=== PATIENT | female | born 1995 ===

== ENCOUNTER 2016-11-30 14:40 | Inpatient (IN) | payer MEDICAID, OTHER ==
[2016-11-30 15:29] VITALS: RESP 16
[2016-11-30] MEDS ORDERED: ACETAMINOPHEN TAB 325 MG TAB PO PRN (16:13)
[2016-11-30] MEDS ORDERED: MAG HYDROX/AL HYDROX/SIMETH 30 ML CUP PO PRN (16:13)
[2016-11-30] MEDS ORDERED: MAGNESIUM HYDROXIDE 2,400 MG/10 ML CUP PO PRN (16:13)
[2016-11-30] MEDS ORDERED: LORazepam 1 MG TAB PO PRN (16:20)
[2016-11-30] MEDS ORDERED: LORazepam 2 MG/ML SYRINGE IM PRN (16:20)
[2016-11-30 17:06] VITALS: BMI 17.8
[2016-12-01] MEDS ORDERED: CITALOPRAM HYDROBROMIDE 20 MG TAB PO SCH (09:00)
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
--- NOTE | 2016-12-01 14:14 | P.PN ---
Subjective Principal diagnosis: SUBJECTIVE: Patient endorses:low self esteem ,preoccupied with being criticized or rejected, limited social interaction ,minimizing her alcohol use saying "Just social", patient verbalized understanding regarding risk factor of alcohol on her physical and mental health MENTAL STATUS EXAM: Patient is casually dressed white female ,looking much younger than stated age, non spontaneous ,affect is inappropriate to thought content,denies any psychotic features,denies any active suicidal or homicidal ideation,alert and oriented to person ,place and time,limited insight ASSESSMENT:patient is struggling with social phobia ,avoidance and recent break- up of 8 months relationship PLAN: Celexa 20 mg HS,encourage participation in groups therapy Objective - Vital Signs Vital signs: Vital Signs Temp 97.8 F 12/01/16 06:30 Pulse 68 12/01/16 06:30 Resp 16 12/01/16 06:30 BP 92/51 12/01/16 06:30 Pulse Ox Intake & Output 11/30/16 12/01/16 12/01/16 18:59 06:59 18:59 Weight 38.612 kg
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
[2016-12-01] MEDS: CITALOPRAM HYDROBROMIDE 20 MG TAB PO SCH (20:47)
--- NOTE | 2016-12-02 10:35 | P.PN ---
Subjective SUBJECTIVE: Patient stated that she is less depressed ,trying to overcome her social phobia without Benzodiazepine "I did not ask for any Xanax since I came",denies any sleeping or appetite problems ,trying to work on post-discharge goals "I have to adjust again living with my parents",patient stated that she will try to go back to work so"I will be busy and not thinking about my ex-boyfriend", discussed her reaction and feeling regarding criticism "One of patient calling me seventh grader but I trying to ignore her" MENTAL STATUS EXAM: Patient is casually dressed white female ,looking much younger than stated age, non spontaneous ,affect is inappropriate to thought content,denies any psychotic features,denies any active suicidal or homicidal ideation,alert and oriented to person ,place and time,limited insight ASSESSMENT:patient is struggling with social phobia ,avoidance and recent break- up of 8 months relationship,compliant with medications and groups participation PLAN: Continue Celexa and groups participation ,family meeting tomorrow to evaluate her support system and most likely discharge after family meeting Objective - Vital Signs Vital signs: Vital Signs Temp 98.2 F 12/02/16 06:35 Pulse 78 12/02/16 06:35 Resp 16 12/02/16 06:35 BP 98/58 12/02/16 06:35 Pulse Ox Intake & Output 12/01/16 12/02/16 12/02/16 18:59 06:59 18:59 Weight 38.612 kg
[2016-12-02] MEDS: CITALOPRAM HYDROBROMIDE 20 MG TAB PO SCH (20:11)
[2016-12-03 06:45] VITALS: BP 108/53; PULSE 88; TEMP 97.7
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
== END 2016-12-03 12:45 | disposition home or self-care (01) | DRG 881 ==
LOC: 3MHU 14:40
PROVIDERS: ADMIT Psychiatry & Neurology Psychiatry; ATTEND Psychiatry & Neurology Psychiatry
DX: F32.9 Major depressive disorder, single episode, unspecified (principal); F40.10 Social phobia, unspecified; Z81.8 Family history of other mental and behavioral disorders; Z82.49 Family history of ischemic heart disease and other diseases of the circulatory system; Z79.899 Other long term (current) drug therapy
CPT/HCPCS: 84443